=== PATIENT | female | born 1945 | race Caucasian/White ===

== ENCOUNTER 2018-02-23 06:15 | Day surgery (SDC) | payer OTHER ==
--- NOTE | 2018-02-17 13:11 | RAD REPORT ---
EXAM DESCRIPTION: RAD - Chest Pa And Lat (2 Views) - 02/17/2018 1:00 pm CLINICAL HISTORY: Preop chest, pending shoulder surgery COMPARISON: None. TECHNIQUE: PA and lateral views of the chest were obtained. FINDINGS: The lungs are clear of focal infiltrate, mass or failure. Lung markings are mildly promine nt believed to be baseline. Trachea is midline. Heart size is normal and central vasculature is wit hin normal limits. No pleural effusion or pneumothorax seen. No acute bony finding noted. No aorti c abnormality. IMPRESSION: No acute cardiopulmonary process.
[2018-02-17 13:47] LABS: Absolute Lymphocytes (CBC) 1.7 K/uL (0.7-4.9); Absolute Monocytes 0.6 K/uL (0.1-1.3); Absolute Neutrophil 3.1 K/uL (1.8-8.0); Basophils % 0.8 % (0-1.3); Hematocrit 36.2 % (36.0-45.0); MPV 10.1 fL (7.6-11.3); Monocytes % 10.8 % (3.3-12.3); RBC Red Blood Cell Count 4.16 M/uL (3.86-4.86)
[2018-02-17 13:50] LABS: Protime INR 0.87
--- NOTE | 2018-02-18 07:49 | EKG ---
Test Date: 2018-02-17 Test Time: 13:03:28 Traffic Control Specialist: SAVANNA MEASUREMENT RESULTS: Intervals: Rate: 68 WV: 174 QRSD: 82 QT: 402 QTc: 427 [place]: P: 45 WV: 174 QRS: 41 T: 58 INTERPRETIVE STATEMENTS: Normal sinus rhythm Normal ECG Compared to ECG 09/08/2004 14:52:00 No significant changes Electronically Signed On 02-18-18 07:46:21 SHELL SHOP SUPERVISOR by Carlos Byrnes
--- OUTSIDE RECORDS SUMMARY | 2018-02-23 06:20 | XMS REPORT ---
:1945 Author Organization eClinicalWorks Care Team Providers Name Role Phone Elian Desai Provider Role Unavailable Allergies No Known Allergies Problems No Known Problems Medications No Known Medications Results No Known Results Summary Purpose eClinicalWorks Submission
--- OUTSIDE RECORDS SUMMARY | 2018-02-23 06:20 | XMS REPORT ---
:1945 Author Organization eClinicalWorks Care Team Providers Name Role Phone Elian Desai Provider Role Unavailable Allergies, Adverse Reactions, Alerts Substance Reaction Event Type N.K.D.A. Info Not Available Non Drug Allergy Problems Problem Type Condition Code Onset Dates Condition Status Assessment Pain, joint, shoulder, right M25.511 Active Assessment Tear of left rotator cuff, M75.102 Active unspecified tear extent Assessment Impingement syndrome, shoulder, M75.42 Active left Assessment Calcific tendinitis of left M75.32 Active shoulder Assessment Bicipital tendinitis, left shoulder M75.22 Active Medications Medication Code Code Instructions Start End Status Dosage System Date Date Hydrochlorothiazide [facility] 43850917984 25 MG Oral Active TAKE 1 TABLET BY MOUTH EVERY DAY Fish Oil [facility] 60235257029 435 MG Orally Active 1 capsule Once a day Tolterodine Tartrate [facility] 99802342250 4 MG Oral Active TAKE ONE ER CAPSULE BY MOUTH EVERY DAY Simvastatin [facility] 86081535124 40 MG Oral Active TAKE 1 TABLET AT BEDTIME DUE FOR OFFICE VISIT IN MAY Multi Vitamin Daily [facility] 26572900221 - Orally Once Active 1 tablet a day Calcium [facility] [address]-45 150 MG Orally Active as directed Aspir-81 [facility] 51783776258 81 MG Orally Sept Active 1 tablet Once a day 2017 Meloxicam [facility] 06383109679 15 MG Oral Active TAKE 1 TABLET BY MOUTH EVERY DAY Results No Known Results Summary Purpose eClinicalWorks Submission
--- OUTSIDE RECORDS SUMMARY | 2018-02-23 06:20 | XMS REPORT ---
[...] Start End Status Dosage System Date Date Simvastatin [facility] 89578376583 40 MG Oral Active TAKE 1 TABLET AT BEDTIME DUE FOR OFFICE VISIT IN May [facility] 89271083122 81 MG Orally Nov 08, Active 1 tablet Once a day 2017 Tolterodine [facility] 77367887715 4 MG Oral Active TAKE ONE Tartrate ER CAPSULE BY MOUTH EVERY DAY Calcium [facility] [address]-67 150 MG Orally Active as directed Multi Vitamin ND 58196623627 - Orally Once a Active 1 tablet Daily day Fish Oil [facility] 71535454015 435 MG Orally Active 1 capsule Once a day Meloxicam [facility] 98105474884 15 MG Oral Active TAKE 1 TABLET BY MOUTH EVERY DAY Results No Known Results Summary Purpose eClinicalWorks Submission
--- OUTSIDE RECORDS SUMMARY | 2018-02-23 06:20 | XMS REPORT ---
:1945 Author Organization eClinicalWorks Care Team Providers Name Role Phone Lloyd Elian Provider Role Unavailable Allergies, Adverse Reactions, Alerts Substance Reaction Event Type N.K.D.A. Info Not Available Non Drug Allergy Problems Problem Type Condition Code Onset Dates Condition Status Assessment Pain, joint, shoulder, right M25.511 Active Assessment Tear of left rotator cuff, M75.102 Active unspecified tear extent Assessment Calcific tendinitis of left M75.32 Active shoulder Medications Medication Code Code Instructions Start End Status Dosage System Date Date [facility] 91586211068 81 MG Orally Nov 08, Active 1 tablet Once a day 2017 Multi Vitamin [facility] 72913040649 - Orally Once a Active 1 tablet Daily day Meloxicam [facility] 77525588279 15 MG Oral Active TAKE 1 TABLET BY MOUTH EVERY DAY Fish Oil [facility] 45415972215 435 MG Orally Active 1 capsule Once a day Simvastatin [facility] 20405513229 40 MG Oral Active TAKE 1 TABLET AT BEDTIME DUE FOR OFFICE VISIT IN MAY Calcium [facility] [address]-57 150 MG Orally Active as directed Tolterodine [facility] 59099675412 4 MG Oral Active TAKE ONE Tartrate ER CAPSULE BY MOUTH EVERY DAY Results Name Result Date Reference Range Unit Abnormality Flag mri left shoulder w/out contrast Summary Purpose eClinicalWorks Submission
[2018-02-23] MEDS ORDERED: Ringers Lactate 1,000 ML IV ONE (06:52)
[2018-02-23] MEDS ORDERED: CEFAZOLIN 1GM (PREMIX IV) 1 GM/50 ML BAG ONE (06:52)
[2018-02-23] MEDS ORDERED: EPINEPHRINE/PF 1 MG/ML AMP ONE (07:00)
[2018-02-23] MEDS ORDERED: MIDAZOLAM HCL 2 MG/2 ML INJ ONE ×2 (07:07)
[2018-02-23] MEDS ORDERED: LIDOCAINE 2% MPF 5 ML VIAL ONE (07:07)
[2018-02-23] MEDS ORDERED: PROPOFOL 200 MG/20 ML VIAL IV ONE (07:07)
[2018-02-23] MEDS ORDERED: ROCURONIUM 50 MG/5 ML VIAL IV ONE (07:07)
[2018-02-23] MEDS ORDERED: FENTANYL CITR 250 MCG/5 ML ONE (07:07)
[2018-02-23] MEDS ORDERED: ROPLVACAINE HCL 40 ML ONE (07:22)
[2018-02-23] MEDS ORDERED: DEXAMETHASONE 4 MG/ML VIAL ONE (07:22)
[2018-02-23] MEDS ORDERED: EPHEDRINE SULF 50 MG/ML VIAL ONE (08:00)
[2018-02-23] MEDS: Ringers Lactate 1,000 ML IV ONE ×2 (08:26→08:49)
[2018-02-23] MEDS ORDERED: KETOROLAC 30 MG/ML INJ ONE (10:14)
--- NOTE | 2018-02-23 10:31 | P.BOP ---
Preoperative diagnosis: left shoulder rotator cuff tear, bicipital tendinitis, impingement syndrome Postoperative diagnosis: same Primary procedure: left shoulder arthroscopic rotator cuff repair Secondary procedure: arthroscopic biceps tenotomy Other procedure(s): arthroscopic subacromial decompression Software Support Representative: NONE,NONE Estimated blood loss: 10 cc Specimen: none Findings: see dictation Anesthesia: General Complications: None Implants: 4-4.75 mm Arthrex Swivelock Fluids & blood products: per anesthesia record Transferred to: Recovery Room Condition: Good
--- NOTE | 2018-02-23 10:54 | RAD REPORT ---
EXAM DESCRIPTION: RAD - Shoulder 1 View - 02/23/2018 10:48 am CLINICAL HISTORY: s/p l shoulder rotator cuff repair COMPARISON: Shoulder Left Wo Cont dated 11/11/2017 FINDINGS: Single AP projection of the left shoulder is submitted. Degenerative changes involve the A C joint. No fractures present. Subtle calcification is seen in the region of the humeral head greater tuberosity. Moderate soft tissue swelling is noted.
[2018-02-23] MEDS: MORPHINE 4 MG/ML SYR ONE ×4 (11:03→11:15)
[2018-02-23] MEDS ORDERED: HYDROCODONE/APAP 7.5/325 MG TAB ONE (11:43)
--- NOTE | 2018-02-24 08:12 | OP ---
Date of Procedure: 02/23/2018 Surgeon: Elian Desai MD Preoperative Diagnoses: 1. Left shoulder rotator cuff tear. 2. Left shoulder bicipital tenosynovitis. 3. Left shoulder impingement syndrome. Postoperative Diagnoses: 1. Left shoulder rotator cuff tear. 2. Left shoulder bicipital tenosynovitis. 3. Left shoulder impingement syndrome. Procedures Performed: 1. Left shoulder arthroscopic rotator cuff repair. 2. Left shoulder arthroscopic biceps tenotomy. 3. Left shoulder arthroscopic subacromial decompression. Anesthesia: General endotracheal. Fluids: Per Anesthesia record. Estimated Blood Loss: Less than 10 cc. Complications: None. Implants: Four 4.75-mm Arthrex SwiveLock. Indication For Procedure: Alise is a 72-year-old female who presented to my clinic with signs, symptoms, and MRI findings consistent with a large rotator cuff tear with retraction. I discussed with the patient at length the risks and benefits associated with operative and nonoperative treatment. She expressed understanding and elected to proceed with operative treatment. Description Of Procedure: After informed consent was obtained, the patient was identified in the preoperative holding area. The left upper extremity was marked. The patient was brought back to the PACU, underwent an interscalene block performed by Anesthesia. She was then taken to the operating room, transferred to the operating table in a supine fashion, and placed under general endotracheal anesthesia. She was then placed in beach chair position with her extremities well padded. The left upper extremity was examined. The patient had full range of motion and no instability of her left shoulder joint. The left upper extremity was then prepped and draped in usual sterile fashion. A time-out was initiated. Correct patient and procedure were confirmed and identified. The patient did receive her preoperative prophylactic antibiotics. Through a posterior portal position, a spinal needle was introduced into the glenohumeral joint. Stab incision was then made after the shoulder was injected with 30 cc of normal saline. Arthroscopic cannula was then brought in to the posterior portal position, and a diagnostic arthroscopy was performed. An anterior portal was made, and a cannula was placed. The patient was noted to have significant tearing of the biceps tendon anchor. Biceps tenotomy was performed using a meniscal biter and arthroscopic shaver where I exposed superior labrum. Anterior and posterior labrum was found to be intact. There was no tear of the inferior labrum. There were no bodies within the axillary pouch. Subscapularis was found to be intact. There was noted to be a defect in the supraspinatus. A lateral portal was created. There was transfer of an obturator into the articular space indicating full- thickness tear. It was retracted near the apex of the humeral head. The arthroscope was then brought into the subacromial space, and subacromial bursectomy was performed. There was noted to be fraying of the coracoacromial ligament. Soft tissue was then debrided off the undersurface of the acromion using a radiofrequency ablator. Any kind of scarring secondary to the retracted supraspinatus tendon was debrided using an arthroscopic shaver. A tension suture was placed using a scorpion FasT-Fix with a SutureTape. All adhesions were released using arthroscopic shaver. The undersurface of the supraspinatus was then released off the glenoid using an elevator to help with reduction of the supraspinatus under the footprint. The footprint of the greater tuberosity was then debrided using an arthroscopic shaver to create a bleeding bony bed. Two medial row anchors were placed for a SpeedBridge configuration. There were SwiveLocks which were loaded with SutureTape. After they were placed, sutures were then passed through the supraspinatus with scorpion FastPass. The sutures were then cut at the splice and fixed laterally in a crisscross pattern. It was then used to aid with reduction of the supraspinatus on the footprint. Attention was placed, and a lateral row anchor was placed anteriorly. There was good reduction of the supraspinatus on the footprint. The medial row sutures were cut. A central suture from the anchor was then used to place the medial portion suture anteriorly in thesupraspinatus and tied down with overall good reduction of the supraspinatus into its footprint. A second lateral row anchor was placed posteriorly, again, in a crisscross pattern with sutures from the anterior and posterior medial row anchors were then used, and a lateral row SwiveLock was then used for reduction of the supraspinatus. The patient was noted to have some poor-quality bone. However, after the SwiveLock was placed, it was found to be stable with tension being placed on the central suture within the islet. The remaining sutures were then cut and central islet suture was then used to reinforce the repair with placing another suture through the supraspinatus posteriorly, and it was tied down with overall good reduction of the supraspinatus on its footprint. Next, attention was taken to subacromial decompression. Acromioplasty was performed using arthroscopic jie. Soft tissue was debrided off the undersurface of the acromion with a radiofrequency ablator. After this was completed, the cannulas were removed and the portals and were approximated using a 2-0 Vicryl and 3-0 Monocryl. Sterile dressings were applied. The patient was awakened and transferred to PACU in stable condition. Postoperative Plan: She will be follow the large rotator cuff repair protocol at 6 weeks postoperatively. She will follow up at my clinic next week for wound check. ELAINA/KHOI Voice ID: [id number] Report ID: [id number] MTDD
== END 2018-02-23 13:00 | disposition home or self-care (01) ==
LOC: OR 06:15
PROVIDERS: ATTEND Orthopaedic Surgery Sports Medicine
PROC: 0RNK4ZZ Release Left Shoulder Joint, Percutaneous Endoscopic Approach (ICD-10-PCS; 2018-02-23)
PROC: 0RBK4ZZ Excision of Left Shoulder Joint, Percutaneous Endoscopic Approach (ICD-10-PCS; 2018-02-23)
PROC: 0LQ24ZZ Repair Left Shoulder Tendon, Percutaneous Endoscopic Approach (ICD-10-PCS; principal; 2018-02-23 07:30)
DX: M75.102 Unspecified rotator cuff tear or rupture of left shoulder, not specified as traumatic (principal); M75.42 Impingement syndrome of left shoulder; M75.22 Bicipital tendinitis, left shoulder; M75.32 Calcific tendinitis of left shoulder; I10 Essential (primary) hypertension; E78.00 Pure hypercholesterolemia, unspecified; Z79.82 Long term (current) use of aspirin; Z82.49 Family history of ischemic heart disease and other diseases of the circulatory system
CPT/HCPCS: 29822; 29826; 29827; 36415; 71046; 73020; 80048; 85025; 85610; 85730; 93005; J0171; J0690; J2250; J2704; J2795; J3010

== ENCOUNTER 2023-08-13 08:47 | Day surgery (SDC) | payer OTHER ==
[2023-08-12 14:47] LABS: Absolute Eosinophils 0.1 K/uL (0-0.5); Absolute Lymphocytes (CBC) 1.4 K/uL (0.7-4.9); Absolute Monocytes 0.6 K/uL (0.1-1.3); Basophils % 0.8 % (0-1.3); Eosinophils % 1.8 % (0-4.4); Hematocrit 30.9 % (36.0-45.0); Hemoglobin 10.5 g/dL (12.0-15.0); Lymphocytes % 23.3 % (15.3-44.8); MCH 29.2 pg (27.0-35.0); MCHC 33.9 g/dL (32.0-36.0); MCV 86.1 fL (80-100); MPV 8.4 fL (7.6-11.3); Neutrophils % 65.1 % (41.7-73.7); Nucleated Red Blood Cells % 0.1 % (0-0); Platelets 294 thou/uL (152-406); RBC Red Blood Cell Count 3.59 M/uL (3.86-4.86); Red Cell Distribution Width 13.3 % (12.1-15.2)
[2023-08-12 15:00] LABS: Anion Gap 7.9 mEq/L (5.0-15.0); Potassium 3.9 mEq/L (3.5-5.1)
[2023-08-13] MEDS: Ringers Lactate 1,000 ML IV ONE (09:05)
[2023-08-13] MEDS ORDERED: FENTANYL CITR 100 MCG/2 ML ONE (09:09)
[2023-08-13] MEDS ORDERED: LIDOCAINE 1% MPF 5 ML VIAL ONE ×2 (09:09→10:20)
[2023-08-13] MEDS ORDERED: EPINEPHRINE 1 MG/ML VIAL ONE (09:10)
[2023-08-13] MEDS ORDERED: dexAMETHasone 4 MG/ML VIAL ONE (09:10)
[2023-08-13] MEDS ORDERED: MIDAZOLAM HCL 2 MG/2 ML INJ ONE (09:10)
[2023-08-13] MEDS ORDERED: ONDANSETRON 4 MG/2 ML VIAL ONE (10:20)
[2023-08-13] MEDS ORDERED: propofoL 200 MG/20 ML VIAL IV ONE (10:20)
[2023-08-13] MEDS: CEFAZOLIN SODIUM 1 GM/VIAL ONE (10:45)
[2023-08-13] MEDS ORDERED: EPHEDRINE SULF 50 MG/ML VIAL ONE (11:05)
[2023-08-13] MEDS ORDERED: KETOROLAC 30 MG/ML INJ ONE (12:17)
[2023-08-13 13:32] VITALS: BP 151/54; TEMP 97; O2SAT 97
--- NOTE | 2023-08-13 14:12 | RAD REPORT ---
EXAM DESCRIPTION: RAD - Hand Left 3 View - 08/13/2023 12:49 pm CLINICAL HISTORY: ORIF 5TH METATARSAL, 4TH METATARSAL PIN COMPARISON: None available. FINDINGS: Ten Images were sent to PACS, documenting fluoroscopy use during image guided open-reducti on internal fixation and pinning procedures. No radiologist was available for the procedure, nor will any image interpretation he provided. Please refer to the procedural report for additional details. Fluoroscopy time: 1.2 Minutes. IMPRESSION: Documentation of fluoroscopy utilization as above.
--- NOTE | 2023-08-13 15:55 | OP ---
Date of Procedure: 08/13/2023 Surgeon: Juan Cruz MD Preoperative Diagnoses: Left fourth and fifth metacarpal fractures with left fourth proximal phalanx fracture. Procedures: 1.Left fifth metacarpal open reduction with internal fixation. 2.Left fourth closed reduction and pin fixation. 3.Closed treatment of fourth proximal phalanx fracture. Estimated Blood Loss: Less than 3 cc. Complications: There were no complications. Specimens Sent: No pathology specimens sent. Indication For Operation: Ms. Palencia is a 78-year-old female who unfortunately fell injuring her le ft upper extremity. She came to see me in my office for x-rays that demonstrated a highly displaced fifth metacarpal fracture, more or less a transverse, a very short oblique fourth metacarpal fracture , as well as, a dorsally angulated fourth proximal phalanx. On physical examination, there was no op en injury. She was neurovascularly intact. However, she did have obvious overlap of the fifth onto the fourth and this was associated with an adjacent metacarpal fracture, it is unstable and will heal with malrotation, and therefore, risks, benefits, and alternatives of different methods of treating this were discussed with her and the plan is to pursue operative intervention. Given options of perh aps intramedullary nail versus pinning versus open reduction internal fixation versus close managemen t. She says she understands everything as presented and wishes to proceed. Description Of Procedure: The patient had a block in the holding area, then brought to the operating room where general anesthesia was easily obtained by the Anesthesia staff. Following this, a well-p added tourniquet was placed on superior left arm. She was then taken out of her splint and fingers w ere examined which have obvious malrotation. Left upper extremity was then prepped and draped in the usual sterile fashion for the procedure and decision was made to move forward with a fifth metacarpa l open reduction and internal fixation. This was then performed in a standard fashion with a dorsal incision taken carefully through skin only. Meticulous hemostasis being maintained using bipolar juan ctrocautery. Dorsal veins were retained and mobilized as well as mobilization of the tendon. Soft t issue was divided longitudinally over the fifth metacarpal. The fracture site was identified. It wa s highly displaced. Standard reduction techniques including rotation, traction and clamping were use d for near anatomic reduction. Following this, a plate was then applied using 2.0 screws and it appe ars to hold well. It should be noted that the most proximal screw is a locking screw, the rest are n onlocked. After this, attention was then turned to the fourth and C-arm was brought in. A 4.5 wire was then placed longitudinally across the fracture site. Decision was then whether or not to overdri ll this and place a nail which would allow for early motion of the fingers which was desired. Keely r, the pin itself appeared to essentially occupy the entire fourth metacarpal canal and it was felt t hat overdrilling and placing a screw would just be too large for this very small hand. Therefore, de cision was made simply to retain the pin. It was then bent. The soft tissues were closed over the [facility] after irrigation. Following this, the skin was closed using nylon sutures. Th e patient was placed in extremely well-padded sterile dressing and ulnar gutter splint. It should be noted that the fourth proximal phalanx appeared to be extremely stable and well aligned. It should also be noted that the rotational deformity of the fingers has been corrected. The patient was then awakened and taken to recovery room in good condition. There were no complications. /MODL Voice ID: [id number] Report ID: [id number]
--- NOTE | 2023-08-14 14:10 | EKG ---
Test Date: 2023-08-12 Test Time: 14:07:54 Spool Maker: CARLOS MEASUREMENT RESULTS: Intervals: Rate: 64 AR: 186 QRSD: 98 QT: 412 QTc: 425 [place]: P: 66 AR: 186 QRS: 60 T: 57 INTERPRETIVE STATEMENTS: Normal sinus rhythm Normal ECG Compared to ECG 02/17/2018 13:03:28 No significant changes Electronically Signed On 08-14-23 14:07:04 CDT by Ru Rogers
== END 2023-08-13 13:58 | disposition home or self-care (01) ==
LOC: OR 08:47
PROVIDERS: ATTEND Orthopaedic Surgery
PROC: 0PSQ34Z Reposition Left Metacarpal with Internal Fixation Device, Percutaneous Approach (ICD-10-PCS; 2023-08-13)
PROC: 0PSVXZZ Reposition Left Finger Phalanx, External Approach (ICD-10-PCS; 2023-08-13)
PROC: 0PSQ04Z Reposition Left Metacarpal with Internal Fixation Device, Open Approach (ICD-10-PCS; principal; 2023-08-13 11:00)
DX: S62.327A Displaced fracture of shaft of fifth metacarpal bone, left hand, initial encounter for closed fracture (principal); S62.325A Displaced fracture of shaft of fourth metacarpal bone, left hand, initial encounter for closed fracture; S62.615A Displaced fracture of proximal phalanx of left ring finger, initial encounter for closed fracture; W19.XXXA Unspecified fall, initial encounter
CPT/HCPCS: 93005; 85025; 80048; 36415; 73130; 26615; 26608; 26720; J2704; J1100; J2001 ×2; J2250; J3010; J0171; J2405; J7120; J0690